=== PATIENT | male | born 1995 | race Caucasian/White ===

== ENCOUNTER 2017-03-12 02:19 | Emergency (ER) | payer BC ==
[~2017-03-12] VITALS: Ht 180.3 cm; Wt 75.0 kg
[~2017-03-12 02:19] MED LIST: ADDERALL20 MG PO; AMOXICILLIN 50500 MG PO; BIAXIN 500MG T500 MG PO; NEXIUM 40MG40 MG PO
[2017-03-12 02:21] VITALS: BP 157/90; PULSE 96; TEMP 97.8
[2017-03-12] MEDS ORDERED: PREDNISONE10 MG PO (02:29)
== END 2017-03-12 04:12 | disposition home or self-care (01) ==
LOC: COL.ER 02:19
DX: S01.81XA Laceration without foreign body of other part of head, initial encounter (principal); W22.09XA Striking against other stationary object, initial encounter; Y92.008 Other place in unspecified non-institutional (private) residence as the place of occurrence of the external cause

== ENCOUNTER 2017-03-18 17:02 | Emergency (ER) | payer BC ==
[~2017-03-18] VITALS: Ht 180.3 cm; Wt 78.6 kg
[~2017-03-18 17:02] MED LIST changes: +PREDNISONE10 MG PO
[2017-03-18 17:06] VITALS: TEMP 97.9
[2017-03-18] MEDS ORDERED: AMOXICILLIN875 MG PO (17:08)
[2017-03-18 18:34] LABS: BASO # 0.1 (0.0-0.2); BASO % 0.5 % (0.0-2.0); EOS # 0.1 (0.0-0.7); EOS % 0.5 % (0-4.0); GRAN # 11.3 (1.4-6.5); GRAN % 76.5 % (42.2-75.2); HEMATOCRIT 41.1 % (42.0-52.0); LYMPH # 2.2 (1.2-3.4); LYMPH % 14.5 % (20.0-51.0); MEAN CELL VOLUME 84 fl (80.0-100.0); MEAN CORPUSCULAR HEMOGLOBIN 29 pg (27.0-31.0); MEAN CORPUSCULAR HGB CONC 34 g/dl (33.0-37.0); MEAN PLATELET VOLUME 9.3 fl (7.4-10.4); MONO # 1.1 (0.1-0.6); MONO % 7.4 % (1.7-9.3); PLATELET COUNT 274 K/mm3 (130-400); REDCELL DISTRIBUTION WIDTH-CV 13.6 % (11.5-14.5); WHITE BLOOD COUNT 14.8 K/mm3 (4.8-10.8)
[2017-03-18 18:43] LABS: ADJUSTED CALCIUM 9.1 mg/dL (8.4-10.2); ALBUMIN 4.4 gm/dL (3.5-5.0); BILIRUBIN,TOTAL 0.7 mg/dL (0.0-1.0); CALCIUM 9.4 mg/dL (8.4-10.2); CREATININE, serum 0.97 mg/dL (0.66-1.25); POTASSIUM 4.1 mmol/L (3.4-5.0); TOTAL PROTEIN 7.3 gm/dL (6.4-8.2)
[2017-03-18 19:34] VITALS: BP 143/75; PULSE 76
== END 2017-03-18 20:20 | disposition home or self-care (01) ==
LOC: COL.ER 17:02
PROVIDERS: Emergency Medicine
DX: S06.0X9A Concussion with loss of consciousness of unspecified duration, initial encounter (principal); W19.XXXA Unspecified fall, initial encounter; F10.10 Alcohol abuse, uncomplicated; F12.10 Cannabis abuse, uncomplicated; R42 Dizziness and giddiness
CPT/HCPCS: J2405; J3360; J7030